=== PATIENT | male | born 1985 | race Caucasian/White ===

== ENCOUNTER 2020-02-24 22:20 | Emergency (ER) | payer OTHER ==
[~2020-02-24] VITALS: Ht 182.9 cm; Wt 88.5 kg
== END 2020-02-25 00:36 | disposition left against medical advice (07) ==
LOC: ER 22:20
DX: Z53.21 Procedure and treatment not carried out due to patient leaving prior to being seen by health care provider (principal)

== ENCOUNTER 2020-06-17 16:35 | Emergency (ER) | payer OTHER ==
[~2020-06-17] VITALS: Ht 188 cm; Wt 89.8 kg
[2020-06-17] MEDS ORDERED: Norco 7.5-3251 EACH PO (18:10)
[2020-06-17] MEDS ORDERED: CEPH500 PO (18:10)
== END 2020-06-17 19:00 | disposition home or self-care (01) ==
LOC: ER 16:35
DX: S62.631A Displaced fracture of distal phalanx of left index finger, initial encounter for closed fracture (principal); Z23 Encounter for immunization; W27.8XXA Contact with other nonpowered hand tool, initial encounter
CPT/HCPCS: 36415; 73140; 90471; 90714; 96365-59; 96366-59; 99283-25; A9270; J0690